=== PATIENT | male | born 1960 | race Caucasian/White ===

== ENCOUNTER 2017-03-31 12:10 | Inpatient (IN) | payer MEDICARE ==
[~2017-03-31] VITALS: Ht 175.3 cm; Wt 78.6 kg
[2017-03-31] MEDS ORDERED: LISINOPRIL20 MG PO (14:05)
[2017-03-31] MEDS ORDERED: COREG 12.5MG12.5 MG PO (14:06)
[2017-03-31] MEDS ORDERED: ASA-BUTALB-CAF1 EACH PO (14:07)
[2017-03-31] MEDS ORDERED: HYDROCODON-ACE1 EAC2 PO (14:09)
[2017-03-31] MEDS ORDERED: COREG 25MG TAB25 MG PO ×2 (14:10→16:02)
[2017-03-31 14:24] LABS: HEMOGLOBIN 15.6 gm/dl (14.0-17.5); RED BLOOD COUNT 5.23 M/UL (4.20-5.50); WHITE BLOOD COUNT 8.6 K/UL (4.5-11.0)
[2017-03-31 14:47] LABS: BUN/CREATININE RATIO 22 (0-10)
[2017-04-01 03:39] LABS: HEMOGLOBIN 15.7 gm/dl (14.0-17.5); RED BLOOD COUNT 5.28 M/UL (4.20-5.50); WHITE BLOOD COUNT 10.7 K/UL (4.5-11.0)
[2017-04-01 03:57] LABS: BUN/CREATININE RATIO 19 (0-10)
[2017-04-02 03:59] LABS: BUN/CREATININE RATIO 18 (0-10)
[2017-04-02] MEDS ORDERED: CORDARONE 200M200 MG PO (17:31)
[2017-04-02] MEDS ORDERED: ASPIRIN CHEWABL81 MG PO (17:32)
== END 2017-04-02 19:00 | disposition home or self-care (01) | DRG 309 ==
LOC: CCU 14:11
PROVIDERS: ADMIT Internal Medicine
DX: I47.1 Supraventricular tachycardia (principal); I50.22 Chronic systolic (congestive) heart failure; I25.10 Atherosclerotic heart disease of native coronary artery without angina pectoris; I11.0 Hypertensive heart disease with heart failure; I25.5 Ischemic cardiomyopathy; F17.210 Nicotine dependence, cigarettes, uncomplicated; F12.90 Cannabis use, unspecified, uncomplicated; I34.8 Other nonrheumatic mitral valve disorders; R06.02 Shortness of breath; E03.9 Hypothyroidism, unspecified; E78.5 Hyperlipidemia, unspecified; Z87.898 Personal history of other specified conditions; Z95.1 Presence of aortocoronary bypass graft; I25.2 Old myocardial infarction; Z72.3 Lack of physical exercise; Z79.891 Long term (current) use of opiate analgesic; Z79.82 Long term (current) use of aspirin; Z79.899 Other long term (current) drug therapy; Z95.810 Presence of automatic (implantable) cardiac defibrillator; Z82.49 Family history of ischemic heart disease and other diseases of the circulatory system
CPT/HCPCS: ECHO; 36415; 78452; 80048; 80053; 80061; 82248; 82550; 82553; 83735; 84439; 84443; 84480; 84484; 85025; 85027; 85610; 85730; 93005; 93017; 93306; 94640; 94664; A9502; J1644; J2785